=== PATIENT | male | born 1995 | race Caucasian/White ===

== ENCOUNTER 2020-02-15 07:21 | Outpatient (CLI) | payer BC, SELFPAY ==
[2020-02-16 14:28] LABS: COVID-19 RT-PCR Result NEGATIVE (Negative)
== END 2020-02-15 07:41 ==
PROVIDERS: PCP Pediatrics; Referring Provider Physician Assistant Medical; Visit Provider Physician Assistant Medical
DX: Z11.59 Encounter for screening for other viral diseases (principal); Z01.818 Encounter for other preprocedural examination
CPT/HCPCS: U0003

== ENCOUNTER 2020-03-29 01:28 | Outpatient (CLI) | payer BC, SELFPAY ==
[2020-03-30 20:24] LABS: COVID-19 RT-PCR Result NEGATIVE (Negative)
== END 2020-03-29 01:48 ==
PROVIDERS: PCP Pediatrics
DX: E84.0 Cystic fibrosis with pulmonary manifestations (principal); Z01.818 Encounter for other preprocedural examination
CPT/HCPCS: U0003

== ENCOUNTER 2020-05-03 04:13 | Outpatient (CLI) | payer BC, SELFPAY ==
[2020-05-06 19:12] LABS: Patient Race White; SARS-CoV-2 RNA Undetected (Undetected); SARS-CoV-2 Specimen Source Nasal
== END 2020-05-03 04:33 ==
PROVIDERS: PCP Pediatrics; Visit Provider Physician Assistant Medical
DX: R51.9 Headache, unspecified (principal); R68.83 Chills (without fever); J02.9 Acute pharyngitis, unspecified; R61 Generalized hyperhidrosis
CPT/HCPCS: U0003

== ENCOUNTER 2020-08-05 01:58 | Outpatient (CLI) | payer BC, SELFPAY ==
[2020-08-06 13:59] LABS: COVID-19 RT-PCR UVMMC Result Negative (Negative)
== END 2020-08-05 01:59 | disposition home or self-care (01) ==
LOC: LBO 01:58
PROVIDERS: PCP Pediatrics; Visit Provider Physician Assistant Medical
DX: Z20.822 Contact with and (suspected) exposure to COVID-19 (principal); Z01.818 Encounter for other preprocedural examination
CPT/HCPCS: U0003

== ENCOUNTER 2020-11-02 02:10 | Outpatient (CLI) | payer BC, SELFPAY ==
[2020-11-02 10:25] LABS: Source Nasal/Nares
[2020-11-02 12:58] LABS: COVID-19 PCR Negative (Negative)
== END 2020-11-02 02:11 | disposition home or self-care (01) ==
LOC: LBO 02:10
PROVIDERS: PCP Pediatrics; Visit Provider Physician Assistant Medical
DX: Z20.822 Contact with and (suspected) exposure to COVID-19 (principal); Z01.818 Encounter for other preprocedural examination
CPT/HCPCS: 87635

== ENCOUNTER 2021-05-02 08:33 | Outpatient (CLI) | payer BC, SELFPAY ==
[2021-05-02 13:26] LABS: Source Nasal/Nares
[2021-05-02 21:05] LABS: COVID-19 PCR Negative (Negative)
== END 2021-05-02 08:34 | disposition home or self-care (01) ==
LOC: LBO 08:33
PROVIDERS: Visit Provider Physician Assistant Medical
DX: Z20.822 Contact with and (suspected) exposure to COVID-19 (principal); Z01.818 Encounter for other preprocedural examination
CPT/HCPCS: 87635

== ENCOUNTER 2021-08-01 01:03 | Outpatient (CLI) | payer BC, SELFPAY ==
[2021-08-01 13:40] LABS: COVID-19 PCR Negative (Negative)
[2021-08-01 13:50] LABS: Source NASAL
== END 2021-08-01 01:04 | disposition home or self-care (01) ==
LOC: LBO 01:03
PROVIDERS: Visit Provider Physician Assistant Medical
DX: Z20.822 Contact with and (suspected) exposure to COVID-19 (principal); Z01.818 Encounter for other preprocedural examination
CPT/HCPCS: 87635